=== PATIENT | female | born 1955 | race Caucasian/White ===

== ENCOUNTER 2017-12-25 11:23 | Inpatient (IN) | payer OTHER, MEDICARE ==
[~2017-12-25] VITALS: Ht 149.9 cm; Wt 46.3 kg
[~2017-12-25 11:23] MED LIST: ANASTROZOLE1 MG PO; ARICEPT10 MG PO; AUGMENTIN 875-1 EACH PO; AUGMENTIN250 MG/51 PO; BACITRACIN28.4 GM TOP; CALCIUM 600 +1 EA10 PO; CILOSTAZOL50 M1 PO; CRANBERRY FRUI425 MG PO; DEPAKOTE SPRIN125 M1 PO; DULCOLAX M400 MG/5 M PO; MACROBID100 MG PO; MIRALAX17 G1 PO; NAMENDA XR21 MG PO; NATURE'S BLEND400 IU PO; POLYTRIM O200 GTT/BO OPH; RANITIDINE15 MG/1 ML PO; [UNRECOGNIZED DRUG - OTHER] PO
--- NOTE | 2017-12-25 13:30 | ED INFLUENZA/URI COMPLAINT ---
History of Present Illness General Chief Complaint: Upper Respiratory Sx/Fever Stated Complaint: LOW GRADE FEVER, ?DEHYDRATION, COUGHING Source: old records, STAFF MEMBER Exam Limitations: clinical condition, MR Vital Signs & Intake/Output Vital Signs & Intake/Output Vital Signs Date Time Temp Pulse Resp B/P B/P Pulse O2 O2 Flow FiO2 Mean Ox Delivery Rate 12/25 1755 96.2 83 20 104/62 95 Room Air 12/25 1543 96.6 84 16 90/52 100 Room Air 12/25 1431 Room Air 12/25 1139 97.4 108 15 92 Room Air Room Air Allergies Coded Allergies: dexamethasone (From TOBRADEX) (UNKNOWN 12/25/17) tobramycin (From TOBRADEX) (UNKNOWN 12/25/17) Triage Note: PT TO ED WITH HAT FORMING MACHINE FEEDER FROM [facility] FOR INCREASED WEAKNESS AND COUGH. SEEN IN ED ON TUESDAY AND TOLD SHE HAD THE BEGINNING OF PNEUMONIA AND PUT ON AMOXICILLIN. TODAY, PT STILL HAD FEVER OF 100. AFEBRILE IN TRIAGE. FLU SWAB SENT. Triage Nurses Notes Reviewed? yes Onset: Gradual Duration: getting worse Timing: recent history Severity: severe Severity Numbers: 7 HPI: Patient is a 62-year-old female with a past medical history of Down syndrome, Alzheimer's dementia, nonverbal seizure disorder who presents to [facility] emergency room 2 days ago for concerns of aspiration pneumonia were old records indicate the patient was eating breakfast and had staff members found patient to be vomiting and was concerned of coughing where patient was evaluated at [place] emergency room in which imaging and blood work indicated that there was suspicion of aspiration pneumonia patient was safely discharged on Augmentin patient returns to emergency room was feeling worse symptoms Staff member states that patient is significantly fatigued cough still persists patient had difficult time eating and swallowing pills today no vomiting however has occurred noted 100 Fahrenheit temperature prior to arrival (Gerard Jimenez) Reconcile Medications Amoxicillin/Potassium Clav (Augmentin 875-125 Tablet) 875 MG-125 MG TABLET 1 TAB PO BID early pneumonia Amoxicillin/Potassium Clav (Augmentin 250-62.5 MG/5 Ml) 250 MG-62.5 MG/5 ML SUSP.RECON 15 ML PO BID pneumonia x 10 days Bacitracin 500 U/GM OIN 1 MARTITA TOP QPM EYES (Reported) apply to affected area(s) Calcium Carbonate (Calcium 600) 600 MG TAB 600 MG PO BID SUPPLEMENT (Reported ) CELLULOSE (Unifiber) (Unknown Strength) POWDER (Unknown Dose) PO QPM SUPPLEMENT (Reported) CHOLECALCIFEROL (VITAMIN D3) (Vitamin D3) 400 UNIT TABLET 400 IU PO BID SUPPLEMENT (Reported) Cilostazol 50 MG TABLET 1 TAB PO BID BLOOD FLOW (Reported) Cranberry (Cranberry Fruit) (Unknown Strength) CAP (Unknown Dose) PO DAILY SUPPLEMENT (Reported) Divalproex Sodium 125 MG ECC 2 CAP PO BID SEIZURES (Reported) Donepezil Hydrochloride (Aricept) 10 MG TAB 10 MG PO AT BEDTIME DEMENTIA ( Reported) Lactose-Reduced Food (Ensure Liquid) 237 ML LIQUID 1 BOT PO DAILY supplement (Reported) Magnesium Hydroxide (Dulcolax Milk Of Magnesia) (Unknown Strength) AMY ( Unknown Dose) PO DAILY GI (Reported) Memantine HCl (Namenda XR) 14 MG CAP.SPR.24 1 CAP PO DAILY MENTAL HEALTH ( Reported) MEMANTINE HCL (Namenda XR) 21 MG CER 1 CAP PO DAILY DEMENTIA/ALZHEIMERS ( Reported) Mometasone Furoate (Nasonex) 50 MCG SPRAY.PUMP 2 SPRAY NASB BID PRN nasal congestion (Reported) Mupirocin 2 % OINT...G. 1 MARTITA TOP TID PRN open wound (Reported) apply to affected area(s) Polyethylene Glycol 3350 (Miralax) 17 GRAM/DOSE POWDER 17 GM PO EOD GI ( Reported) mix with water, juice, soda, coffee or tea RANITIDINE HCL (Ranitidine HCl) 15 MG/ML SYR 15 ML PO QAM GI (Reported) (Horacio BAUER,Brayden) Past History Travel History Traveled to [place] past 21 day No Medical History Any Pertinent Medical History? see below for history Neurological: dementia, DOWN SYNDROME EENT: NONE Cardiovascular: NONE Respiratory: NONE Gastrointestinal: NONE Hepatic: NONE Renal: NONE Musculoskeletal: NONE Psychiatric: NONE Endocrine: NONE Blood Disorders: NONE Cancer(s): breast cancer PRODUCT TEST SPECIALIST/Reproductive: NONE Tetanus Vaccine: 03/17/12 Surgical History Surgical History: non-contributory, N Psychosocial History Who do you live with Paid Attentent What is your primary language Moldovan Tobacco Use: Never used Family History Hx Contributory? No (Gerard Jimenez) Review of Systems Review of Systems Constitutional: Reports: see HPI, fever. EENTM: Reports: no symptoms. Respiratory: Reports: see HPI, cough. Cardiovascular: Reports: no symptoms. GI: Reports: no symptoms. Genitourinary: Reports: no symptoms. Musculoskeletal: Reports: no symptoms. Skin: Reports: no symptoms. Neurological/Psychological: Reports: no symptoms. Hematologic/Endocrine: Reports: no symptoms. Immunologic/Allergic: Reports: no symptoms. All Other Systems: Reviewed and Negative (Gerard Jimenez) Physical Exam Physical Exam General Appearance: comfortable, lethargic Head: atraumatic Eyes: Bilateral: normal appearance. Ears, Nose, Throat: BILATERAL CERUMEN IMPACTION, DRY MUCOUS MEMBRANE Neck: normal inspection Respiratory: quiet respiration, decreased breath sounds Cardiovascular: regular rate/rhythm Gastrointestinal: normal bowel sounds, soft, non-tender Extremities: normal inspection Skin: intact, normal color Core Measures Sepsis Present: No Sepsis Focused Exam Completed? No (Gerard Jimenez) Progress Differential Diagnosis: influenza, meningitis, neutropenia, otitis, pneumonia, pharyngitis, sinusitis Plan of Care: Orders Procedure Date/time Status Nothing by Mouth 12/26 B Active SWALLOW EVALUATION 12/26 0600 Active CBC WITHOUT DIFFERENTIAL 12/26 0600 Active BASIC ELECTROLYTES PLUS BUN&CR 12/26 0600 Active Regular Diet 12/25 D Complete TRC EVALUATION (GEN) 12/25 1800 Active AEROSOL (GEN) 12/25 1800 Active STREP PNEUMO URINARY ANTIGEN 12/25 1759 Active LEGIONELLA URINARY ANTIGEN 12/25 1759 Active URINALYSIS 12/25 1759 Active LOWER RESPIRATORY CULTURE 12/25 1749 Active OXYGEN SETUP (GEN) 12/25 1748 Active Saline Lock 12/25 1748 Active Admit to inpatient 12/25 1748 Active Vital Signs 12/25 1748 Active Activity/Ambulation 12/25 1748 Active Pathway - chart 12/25 1747 Active House Staff 12/25 1747 Active Patient Data 12/25 1747 Active Code Status 12/25 1747 Active Patient Data 12/25 1736 Active LACTIC ACID 12/25 1638 Active Intake & Output 12/25 1430 Active TROPONIN LEVEL 12/25 1410 Complete EKG 12/25 1339 Active LOWER RESPIRATORY CULTURE 12/25 1338 Active BLOOD CULTURE 12/25 1338 Active LACTIC ACID 12/25 1338 Complete COMPREHENSIVE METABOLIC PANEL 12/25 1338 Complete CBC WITHOUT DIFFERENTIAL 12/25 1338 Complete RAPID VIRAL INFLUENZA A 12/25 1144 Complete VTE Mechanical Prophylaxis 12/25 UNK Active Current Medications Sig/Maia Start time Last Medication Dose Stop Time Status Admin Acetaminophen 1,000 MG Q12 PRN 12/25 1800 UNVr (Ofirmev) Ampicillin Sodium/ 1,500 MG Q6 12/25 1800 UNVr Sulbactam Sodium (Unasyn) Sodium Chloride 100 ML (Normal Saline 0.9%) Dextrose/Sodium 1,000 ML Q20H 12/25 1800 CANr Chloride 12/26 1359 (D5W-1/2 Normal Saline 1000ML) Dextrose/Sodium 1,000 ML Q20H 12/25 1800 UNVr Chloride 12/26 1359 (D5W-1/2 Normal Saline 1000ML) Ondansetron HCl 4 MG Q6P PRN 12/25 1800 UNVr (Zofran) Enoxaparin Sodium 40 MG DAILY 12/25 1744 UNVr (Lovenox) Laboratory Tests 12/25/17 1620: Anion Gap 13, Estimated GFR > 60, BUN/Creatinine Ratio 10.0, Glucose 84, Lactic Acid 1.6, Calcium 8.4, Total Bilirubin 0.6, AST 20, ALT 24, Alkaline Phosphatase 62, Troponin I < 0.01, Total Protein 5.7 L, Albumin 2.7 L, Globulin 3.0, Albumin/Globulin Ratio 0.9 L 12/25/17 1410: CBC w Diff NO MAN DIFF REQ, RBC 4.65, MCV 99.7 H, MCH 33.2 H, MCHC 33.3, RDW 14.1, MPV 8.5, Gran % 66.6, Lymphocytes % 22.8, Monocytes % 9.5 H, Eosinophils % 0.4, Basophils % 0.7, Absolute Granulocytes 4.0, Absolute Lymphocytes 1.4, Absolute Monocytes 0.6, Absolute Eosinophils 0, Absolute Basophils 0 12/25/17 1339: Troponin I Cancelled Microbiology 12/25 175 URINE ROUT: Legionella Antigen - ORD 12/25 175 URINE ROUT: Streptococcus pneumoniae Antigen (M - ORD 12/25 1749 LOWER RESP: Respiratory Culture - ORD 12/25 174 LOWER RESP: Gram Stain - ORD 12/25 1510 BLOOD: Blood Culture - RECD 12/25 1410 BLOOD: Blood Culture - CAN Cancelled: Quantity not sufficient for both blood culture bottles. 12/25 1338 LOWER RESP: Respiratory Culture - ORD 12/25 1338 LOWER RESP: Gram Stain - ORD 12/25 1145 NASOPHARYN: Influenza Virus A & B Rapid Smear - COMP PER HAT FORMING MACHINE FEEDER PT HAS NOT IMPROVED WITH ABX AND FLUIDS AT HOME PT IS LETHARGIC ON ARRIVAL, BRONCHIAL INFLAMMATION CONCERNS ON CXR Discussed admission with Dr. Peterson who is covering for Dr. Nicholas and which [facility] is appropriate Diagnostic Imaging: Viewed by Me: Radiology Read. Radiology Impression: SEE COMMENTS Initial ED EKG: normal p-waves, normal QRS complex, 83 BPM,NSR Prior EKG: unchanged Comments: PATIENT: BEHZAD ESPINOZA PRESENT AGE: 62 PATIENT ACCOUNT NO: [id number] : 54 LOCATION: [facility] ORDERING PHYSICIAN: Gerard BENAVIDES SERVICE DATE: 12/25/17 EXAM TYPE: RAD - XRY-CHEST XRAY, TWO VIEWS EXAMINATION: XR CHEST CLINICAL INFORMATION: Aspiration pneumonia COMPARISON: CXR from 12/23/2017 TECHNIQUE: 2 views of the chest were obtained. FINDINGS: Bronchial friedman appear thickened, bilaterally, suggestive of airway inflammation. No consolidation is identified. There appears to be a linear opacity of atelectasis in the retrocardiac region of left lower lobe. No pleural effusion. Cardiomediastinal silhouette has normal size and contour. There are surgical clips of the right axilla. No acute osseous findings compared to 12/23/2017. The degenerated thoracic spine is hyperkyphotic. IMPRESSION: Bronchial friedman appear mildly thickened, suggestive of airway inflammation. However, there is no convincing pneumonia. DICTATED BY: Foreign Raymond MD DATE/TIME DICTATED:12/25/171500 CORPORATE CONTROLLER:TOMAS DATE/TIME TRANSCRIBED:12/25/171500 (Gerard Jimenez) Departure Departure Disposition: STILL A PATIENT Condition: Stable Clinical Impression Primary Impression: Bronchitis Secondary Impressions: Lethargy Referrals: Vinicio Nicholas MD (PCP/Family) Departure Forms: Customer Survey General Discharge Information Admission Note Spoke With: Jose Peterson MD Documentation of Exam: Documentation of any treatments & extenuating circumstances including Concerns Regarding Discharge (functional status, medication knowledge or non-compliance, living conditions, etc.) that warrant an admission rather than observation: [ Patient requires IV fluids, dietary consultation, antibiotics, case management consultation, repeat labs, antitussive medication] (Gerard Jimenez) PA/WHOLESALE LOAN PROCESSOR Co-Sign Statement Statement: ED Attending supervision documentation- x I saw and evaluated the patient. I have also reviewed all the pertinent lab results and diagnostic results. I agree with the findings and the plan of care as documented in the PA's/WHOLESALE LOAN PROCESSOR's documentation. Down's syndrome from [facility] continues with cough, nausea, anorexia on Augmentin for presurmed aspiration. [] I have reviewed the ED Record and agree with the PA's/WHOLESALE LOAN PROCESSOR's documentation. [] Additions or exceptions (if any) to the PAs/WHOLESALE LOAN PROCESSOR's note and plan are summarized below: [] (Horacio BAUER,Brayden)
[2017-12-25 14:22] LABS: ABSOLUTE BASOPHIL COUNT 0 /CUMM (0.0-0.2); ABSOLUTE EOSINOPHIL COUNT 0 /CUMM (0.0-0.7); ABSOLUTE LYMPH COUNT 1.4 /CUMM (1.2-3.4); ABSOLUTE MONOCYTE COUNT 0.6 /CUMM (0.10-0.60); BASOPHIL % 0.7 % (0.0-2.0); EOSINOPHIL % 0.4 % (0-5); GRANULOCYTE % 66.6 % (42.2-75.2); HEMATOCRIT 46.3 % (37-47); MEAN CORPUSCULAR HGB 33.2 PG (27.0-31.0); MEAN CORPUSCULAR HGB CONC 33.3 G/DL (33.0-37.0); MEAN CORPUSCULAR VOLUME 99.7 FL (81.0-99.0); MEAN PLATELET VOLUME 8.5 FL (7.4-10.4); PLATELET COUNT 204 /CUMM (130-400); RBC DISTRIBUTION WIDTH 14.1 % (11.5-14.5); RED BLOOD CELL CT 4.65 /CUMM (4.20-5.40)
--- NOTE | 2017-12-25 15:11 | RADIOLOGY REPORT ---
EXAMINATION: XR CHEST CLINICAL INFORMATION: Aspiration pneumonia COMPARISON: CXR from 12/23/2017 TECHNIQUE: 2 views of the chest were obtained. FINDINGS: Bronchial friedman appear thickened, bilaterally, suggestive of airway inflammation. No consolidation is identified. There appears to be a linear opacity of atelectasis in the retrocardiac region of left lower lobe. No pleural effusion. Cardiomediastinal silhouette has normal size and contour. There are surgical clips of the right axilla. No acute osseous findings compared to 12/23/2017. The degenerated thoracic spine is hyperkyphotic. IMPRESSION: Bronchial friedman appear mildly thickened, suggestive of airway inflammation. However, there is no convincing pneumonia.
--- NOTE | 2017-12-25 17:42 | History & Physical ---
General Information and HPI MD Statement: I have seen and personally examined BEHZAD ESPINOZA and documented this H&P. The patient is a 62 year old F who presented with a patient stated chief complaint of worsening cough and fever []. Source of Information: old records Exam Limitations: unable to give history History of Present Illness: Patient is 62-year-old female from residential with past medical history significant for Down syndrome, seizure, right breast carcinoma status post mastectomy recent ER visit at [facility] on December 23 FOR suspicion of aspiration pneumonia came back to [facility] ER with chief complaint of worsening cough, weakness and fever. Patient is unable to give any history and according to caregiver she was brought in in the ER on when she started coughing and vomited while she was eating and from ER she was sent back to half-way on Augmentin. In these Tuesdays she continues to spike fever with MAXIMUM TEMPERATURE of 100.1 at facility and also she had worsening cough which was concerning and was brought in. Her vital signs on admission were blood pressure 90/52, temperature 96.6, pulse 84, respiratory rate 16, and she was saturating 92% on room air. Labs were significant for WBC count 6.0, hemoglobin 15.4, hematocrit 46.3, platelet count 204, sodium 147, potassium 4.2, urine 7, creatinine 0.7. Lactic acid 1.6 normal LFTs Chest x-ray showed Bronchial friedman appear mildly thickened, suggestive of airway inflammation. However, there is no convincing pneumonia. Allergies/Medications Allergies: Coded Allergies: dexamethasone (From TOBRADEX) (UNKNOWN 12/25/17) tobramycin (From TOBRADEX) (UNKNOWN 12/25/17) Home Med list Amoxicillin/Potassium Clav (Augmentin 875-125 Tablet) 875 MG-125 MG TABLET 1 TAB PO BID early pneumonia Amoxicillin/Potassium Clav (Augmentin 250-62.5 MG/5 Ml) 250 MG-62.5 MG/5 ML SUSP.RECON 15 ML PO BID pneumonia x 10 days Bacitracin 500 U/GM OIN 1 MARTITA TOP QPM EYES (Reported) apply to affected area(s) Calcium Carbonate (Calcium 600) 600 MG TAB 600 MG PO BID SUPPLEMENT (Reported ) CELLULOSE (Unifiber) (Unknown Strength) POWDER (Unknown Dose) PO QPM SUPPLEMENT (Reported) CHOLECALCIFEROL (VITAMIN D3) (Vitamin D3) 400 UNIT TABLET 400 IU PO BID SUPPLEMENT (Reported) Cilostazol 50 MG TABLET 1 TAB PO BID BLOOD FLOW (Reported) Cranberry (Cranberry Fruit) (Unknown Strength) CAP (Unknown Dose) PO DAILY SUPPLEMENT (Reported) Divalproex Sodium 125 MG ECC 2 CAP PO BID SEIZURES (Reported) Lactose-Reduced Food (Ensure Liquid) 237 ML LIQUID 1 BOT PO DAILY supplement (Reported) Magnesium Hydroxide (Dulcolax Milk Of Magnesia) (Unknown Strength) AMY ( Unknown Dose) PO DAILY GI (Reported) Memantine HCl (Namenda XR) 14 MG CAP.SPR.24 1 CAP PO DAILY MENTAL HEALTH ( Reported) Mometasone Furoate (Nasonex) 50 MCG SPRAY.PUMP 2 SPRAY NASB BID PRN nasal congestion (Reported) Mupirocin 2 % OINT...G. 1 MARTITA TOP TID PRN open wound (Reported) apply to affected area(s) Polyethylene Glycol 3350 (Miralax) 17 GRAM/DOSE POWDER 17 GM PO EOD GI ( Reported) mix with water, juice, soda, coffee or tea RANITIDINE HCL (Ranitidine HCl) 15 MG/ML SYR 15 ML PO QAM GI (Reported) Compliance With Home Meds: FAIR Past History Travel History Traveled to [place] past 21 day No Medical History Neurological: dementia, DOWN SYNDROME EENT: NONE Cardiovascular: NONE Respiratory: NONE Gastrointestinal: NONE Hepatic: NONE Renal: NONE Musculoskeletal: NONE Psychiatric: NONE Endocrine: NONE Blood Disorders: NONE Cancer(s): breast cancer EXECUTIVE OFFICER SPECIAL WARFARE TEAM/Reproductive: NONE Tetanus Vaccine: 03/17/12 Surgical History Surgical History: non-contributory, N Review of Systems Review of Systems Constitutional: Reports: fever, malaise, weakness. Denies: chills, diaphoresis. Respiratory: Reports: cough, sputum production. Denies: stridor, wheezing. GI: Denies: constipation, diarrhea. Genitourinary: Denies: dysuria, frequency, hematuria. Musculoskeletal: Denies: gout, joint pain. Skin: Denies: dryness. Exam & Diagnostic Data Last 24 Hrs of Vital Signs/I&O Vital Signs Date Time Temp Pulse Resp B/P B/P Pulse O2 O2 Flow FiO2 Mean Ox Delivery Rate 12/25 1755 96.2 83 20 104/62 95 Room Air 12/25 1543 96.6 84 16 90/52 100 Room Air 12/25 1431 Room Air 12/25 1139 97.4 108 15 92 Room Air Room Air Intake & Output 12/25 1600 12/25 0800 12/25 0000 Intake Total 1000 Output Total Balance 1000 Intake, IV 1000 Physical Exam General Appearance Alert, Oriented X3, Cooperative, No Acute Distress Cardiovascular Regular Rate, Normal S1, Normal S2, No Murmurs Lungs Normal Air Movement Abdomen Soft, No Tenderness, No Hepatospenomegaly Extremities No Cyanosis, No Edema Last 24 Hrs of Labs/Amos: Laboratory Tests 12/25/17 1620: Anion Gap 13, Estimated GFR > 60, BUN/Creatinine Ratio 10.0, Glucose 84, Lactic Acid 1.6, Calcium 8.4, Total Bilirubin 0.6, AST 20, ALT 24, Alkaline Phosphatase 62, Troponin I < 0.01, Total Protein 5.7 L, Albumin 2.7 L, Globulin 3.0, Albumin/Globulin Ratio 0.9 L 12/25/17 1410: CBC w Diff NO MAN DIFF REQ, RBC 4.65, MCV 99.7 H, MCH 33.2 H, MCHC 33.3, RDW 14.1, MPV 8.5, Gran % 66.6, Lymphocytes % 22.8, Monocytes % 9.5 H, Eosinophils % 0.4, Basophils % 0.7, Absolute Granulocytes 4.0, Absolute Lymphocytes 1.4, Absolute Monocytes 0.6, Absolute Eosinophils 0, Absolute Basophils 0 12/25/17 1339: Troponin I Cancelled Microbiology 12/25 1758 URINE ROUT: Legionella Antigen - ORD 12/25 175 URINE ROUT: Streptococcus pneumoniae Antigen (M - ORD 12/25 1749 LOWER RESP: Respiratory Culture - ORD 12/25 1749 LOWER RESP: Gram Stain - ORD 12/25 1510 BLOOD: Blood Culture - RECD 12/25 1410 BLOOD: Blood Culture - CAN Cancelled: Quantity not sufficient for both blood culture bottles. 12/25 1338 LOWER RESP: Respiratory Culture - ORD 12/25 1338 LOWER RESP: Gram Stain - ORD 12/25 1145 NASOPHARYN: Influenza Virus A & B Rapid Smear - COMP Assessment/Plan Assessment: Patient is 62-year-old female from residential with past medical history significant for Down syndrome, seizure, right breast carcinoma status post mastectomy recent ER visit at [facility] on December 23 FOR suspicion of aspiration pneumonia came back to [facility] ER with chief complaint of worsening cough, weakness and fever concerning of aspiration pneumonia. We will admit her on general medical floor and will address following problems Problem #1 worsening cough, weakness and fever most likely due to aspiration pneumonia * We will keep her nothing by mouth except will give her medications crushed with applesauce * Swallow evaluation in a.m. * Aspiration precautions * TRC and nebulization * Start her on Unasyn for now and will send lower respiratory culture * While she is nothing by mouth we will start her on D5 half-normal saline * We will keep her oxygen saturation more than 90% and will give supplemental oxygen if needed Problem #2 history of seizures * We'll continue her home dose of Depakote Problem #3 Down syndrome/wheelchair-bound * All supportive care and [address] Sawant's catheter if needed Pharmacological DVT prophylaxis Patient is full code As Ranked By This Provider Problem List: 1. Aspiration pneumonia Core Measures/Misc (08/14) Acute Coronary Syndrome ACS Diagnosis: No Congestive Heart Failure Congestive Heart Failure Diagnosis No Cerebrovascular Accident CVA/TIA Diagnosis: No VTE (View Protocol) VTE Risk Factors Age>40 No Mechanical VTE Prophylaxis d/t N/A MechProphylax Ordered No VTE Pharm Prophylaxis d/t NA PharmProphylax ordered Sepsis (View protocol) Sepsis Present: No Resident Review Statement Resident Statement: examined this patient
[2017-12-25] MEDS ORDERED: NASONEX17 GM NASB (18:43)
[2017-12-25] MEDS ORDERED: MUPIROCIN22 GM TOP (18:44)
[2017-12-25] MEDS ORDERED: ENSURE LIQUID237 ML PO (18:46)
[2017-12-25] MEDS ORDERED: NAMENDA XR14 M1 PO (18:47)
[2017-12-25 20:16] VITALS: BP 104/60
[2017-12-26 06:34] VITALS: BP 127/60
--- NOTE | 2017-12-26 08:14 | PN- Housestaff ---
Subjective Follow-up For: Worsening cough/aspiration pneumonia Seizure disorder Down syndrome Subjective: Patient was seen and examined this morning. She is nonverbal at baseline. But no overnight event were noted. Swallow evaluation was done this morning and still she is not safe to start on oral diet. We kept her on IV fluids. Around 4:30 this afternoon rapid response was called after witnessed seizure episode. Neurology was consulted and her Depakote dose from 250 twice a day was increased to the times a day and also was changed to IV formulation. Depakote levels were also add on on morning labs. Attending was informed. Review of Systems Constitutional: Denies: chills, diaphoresis. Cardiovascular: Denies: chest pain, edema. Respiratory: Reports: cough. Denies: short of breath. Gastrointestinal: Denies: bloating, diarrhea. Genitourinary: Denies: dysuria, frequency. Objective Last 24 Hrs of Vital Signs/I&O Vital Signs Date Time Temp Pulse Resp B/P B/P Pulse O2 O2 Flow FiO2 Mean Ox Delivery Rate 12/26 1437 97.9 65 19 118/70 92 Room Air 12/26 1324 Room Air Room Air 12/26 0800 Room Air 12/26 0634 97.3 71 20 127/60 96 12/25 2016 98.4 80 19 104/60 100 Room Air 12/25 1928 97.6 86 18 124/69 98 Room Air 12/25 1755 96.2 83 20 104/62 95 Room Air Intake & Output 12/26 1600 12/26 0800 12/26 0000 Intake Total 400 570 100 Output Total Balance 400 570 100 Intake, IV 400 570 100 Intake, Oral 0 Number 1 0 Bowel Movements Output, Urine Patient 101 lb Weight Weight Bed scale Measurement Method Physical Exam General Appearance: Alert, Cooperative, No Acute Distress Cardiovascular: Normal S1, Normal S2 Lungs: Normal Air Movement Abdomen: Soft, No Tenderness Current Medications: Current Medications Sig/Maia Start time Last Medication Dose Route Stop Time Status Admin Acetaminophen 650 MG Q12 PRN 12/25 1800 AC IV Ampicillin Sodium/ 1,500 MG Q6 12/25 1800 AC 12/26 Sulbactam Sodium IV 1145 Sodium Chloride 100 ML Dextrose/Sodium 1,000 ML Q20H 12/26 1615 AC 12/26 Chloride IV 12/27 1214 1746 Dextrose/Sodium 1,000 ML Q20H 12/25 1800 DC 12/25 Chloride IV 12/26 1359 1955 Divalproex Sodium 250 MG BID 12/25 2200 DC 12/26 PO 0919 Enoxaparin Sodium 40 MG DAILY 12/25 1744 AC 12/26 SC 0919 Lorazepam 1 MG ONCE ONE 12/26 1700 DC 12/26 IV 12/26 1701 1655 Memantine 5 MG BID 12/26 1000 AC 12/26 PO 0919 Ondansetron HCl 4 MG Q6P PRN 12/25 1800 AC IV Pantoprazole Sodium 20 MG DAILY 12/26 1000 AC 12/26 IV 0919 Valproate Sodium 500 MG Q8 12/26 1721 UNir Sodium Chloride 50 ML IV Valproate Sodium 250 MG TID 12/26 1717 CANr IV Last 24 Hrs of Lab/Amos Results Last 24 Hrs of Labs/Mics: Laboratory Tests 12/26/17 171: Sodium Pending, Potassium Pending, Chloride Pending, Carbon Dioxide Pending, Anion Gap Pending, BUN Pending, Creatinine Pending, BUN/Creatinine Ratio Pending , Phosphorus Pending, Magnesium Pending 12/26/17 0941: CBC w Diff NO MAN DIFF REQ, RBC 4.15 L, MCV 98.5, MCH 33.3 H, MCHC 33.8, RDW 13.3, MPV 8.6, Gran % 61.7, Lymphocytes % 25.4, Monocytes % 10.3 H, Eosinophils % 1.0, Basophils % 1.6, Absolute Granulocytes 1.6, Absolute Lymphocytes 0.7 L, Absolute Monocytes 0.3, Absolute Eosinophils 0, Absolute Basophils 0 12/26/17 0930: Anion Gap 10, Estimated GFR > 60, BUN/Creatinine Ratio 5.7 L, Valproic Acid Pending 12/25/17 175: Urine Color Cancelled, Urine Clarity Cancelled, Urine pH Cancelled, Ur Specific [place] Cancelled, Urine Protein Cancelled, Urine Ketones Cancelled, Urine Nitrite Cancelled, Urine Bilirubin Cancelled, Urine Urobilinogen Cancelled, Ur Leukocyte Esterase Cancelled, Ur Microscopic Cancelled, Urine Hemoglobin Cancelled, Urine Glucose Cancelled Microbiology 12/25 1758 URINE ROUT: Legionella Antigen - CAN Cancelled: SPECIMEN NOT RECEIVED IN LABORATORY 12/25 1758 URINE ROUT: Streptococcus pneumoniae Antigen (M - CAN Cancelled: SPECIMEN NOT RECEIVED IN LABORATORY Assessment/Plan Assessment: Patient is 62-year-old female from assisted with past medical history significant for Down syndrome, seizure, right breast carcinoma status post mastectomy recent ER visit at [facility] on December 23 FOR suspicion of aspiration pneumonia came back to [facility] ER with chief complaint of worsening cough, weakness and fever concerning of aspiration pneumonia. We will admit her on general medical floor and will address following problems Problem #1 worsening cough, weakness and fever most likely due to aspiration pneumonia * We will keep her nothing by mouth except will give her medications crushed with applesauce * Swallow evaluation was done this morning and she still feels bedside swallow and we will reevaluate her tomorrow morning.. * Aspiration precautions * TRC and nebulization * Start her on Unasyn for now and will send lower respiratory culture * While she is nothing by mouth we will continue her on D5 half-normal saline * We will keep her oxygen saturation more than 90% and will give supplemental oxygen if needed Problem #2 history of seizures * She was continued on her home dose of Depakote. Around 4:30 PM she had an episode of witnessed seizure. Neurology was consulted on phone and recommendations are to increase Depakote to 250 mg 3 times a day. We will follow formal neurology evaluation and recommendations. Depakote levels were add-on on the morning labs. Problem #3 Down syndrome/wheelchair-bound * All supportive care and [address] Sawant's catheter if needed Problem List: 1. Aspiration pneumonia Pain Ratin Pain Location: na Pain Goal: Remain pain free Pain Plan: Tylenol Tomorrow's Labs & Rationales: cbc and bep
[2017-12-26 10:07] LABS: ABSOLUTE BASOPHIL COUNT 0 /CUMM (0.0-0.2); ABSOLUTE EOSINOPHIL COUNT 0 /CUMM (0.0-0.7); ABSOLUTE GRANULOCYTE CT 1.6 /CUMM (1.4-6.5); ABSOLUTE LYMPH COUNT 0.7 /CUMM (1.2-3.4); ABSOLUTE MONOCYTE COUNT 0.3 /CUMM (0.10-0.60); BASOPHIL % 1.6 % (0.0-2.0); GRANULOCYTE % 61.7 % (42.2-75.2); MEAN CORPUSCULAR HGB 33.3 PG (27.0-31.0); MEAN CORPUSCULAR HGB CONC 33.8 G/DL (33.0-37.0); MEAN CORPUSCULAR VOLUME 98.5 FL (81.0-99.0); MEAN PLATELET VOLUME 8.6 FL (7.4-10.4); PLATELET COUNT 175 /CUMM (130-400); RBC DISTRIBUTION WIDTH 13.3 % (11.5-14.5); RED BLOOD CELL CT 4.15 /CUMM (4.20-5.40)
[2017-12-26 10:09] LABS: HEMATOCRIT 40.9 % (37-47); WHITE BLOOD CELL COUNT 2.6 /CUMM (4.8-10.8)
--- NOTE | 2017-12-26 10:51 | Admission Certification ---
Admission Certification Certification Statement - As attending physician, I certify that at the time of - admission, based on clinical presentation, severity of - symptoms, need for further diagnostic testing and - therapeutic interventions, and risk of adverse outcomes - without in-hospital treatment, in my clinical assessment, - this patient requires an acute hospital stay for a minimum - of two nights or longer. I have also considered psychsocial - factors such as support system, advanced age, financial - issues, cognitive issues, and failed out-patient treatments, - past re-admission history, safety of patient, and lack of - compliance as applicable. Specific rationale supporting this admission is: Aspirating food a low-grade fever or possible aspiration
--- NOTE | 2017-12-26 10:53 | PN- Att Addend ---
Attending Addendum Attending Brief Note 62-year-old white female with Down syndrome and [facility] food intake possibly aspirating, had one ER visit have returned still having the same problems having low[facility] at the [facility]. Will admit evaluate for aspiration with a swallowing eval maybe modified barium swallow if needed. And will get antibiotic therapy. 24 TOTALS 12/26 0000 12/25 0000 Intake Total 1100 Output Total Balance 1100 Intake, IV 1100 Patient 101 lb Weight Weight Bed scale Measurement Method Current Medications Sig/Maia Start time Last Medication Dose Route Stop Time Status Admin Acetaminophen 650 MG Q12 PRN 12/25 1800 AC IV Albuterol Sulfate 3 ML ONCE ONE 12/25 1530 DC 12/25 INH 12/25 1531 1710 Ampicillin Sodium/ 1,500 MG Q6 12/25 1800 AC 12/26 Sulbactam Sodium IV 0537 Sodium Chloride 100 ML Ampicillin Sodium/ 0 .STK-MED ONE 12/25 1446 DC Sulbactam Sodium .ROUTE Ampicillin Sodium/ 1,500 MG ONCE ONE 12/25 1345 DC 12/25 Sulbactam Sodium IV 12/25 1414 1717 Sodium Chloride 100 ML Dextrose/Sodium 1,000 ML Q20H 12/25 1800 CAN Chloride IV 12/26 1359 Dextrose/Sodium 1,000 ML Q20H 12/25 1800 AC 12/25 Chloride IV 12/26 1359 1955 Divalproex Sodium 250 MG BID 12/25 2200 AC 12/26 PO 0919 Enoxaparin Sodium 40 MG DAILY 12/25 1744 AC 12/26 SC 0919 Guaifenesin 0 .STK-MED ONE 12/25 1637 DC PO Guaifenesin 10 ML ONCE ONE 12/25 1530 DC PO 12/25 1531 Guaifenesin 10 ML ONCE ONE 12/25 1345 DC 12/25 PO 12/25 1346 1648 Memantine 5 MG BID 12/26 1000 AC 12/26 PO 0919 Ondansetron HCl 4 MG Q6P PRN 12/25 1800 AC IV Pantoprazole Sodium 20 MG DAILY 12/26 1000 AC 12/26 IV 0919 Sodium Chloride 1,000 ML BOLUS ONE 12/25 1345 DC 12/25 IV 12/25 1444 1428 Laboratory Tests 12/26/17 0941: CBC w Diff NO MAN DIFF REQ, RBC 4.15 L, MCV 98.5, MCH 33.3 H, MCHC 33.8, RDW 13.3, MPV 8.6, Gran % 61.7, Lymphocytes % 25.4, Monocytes % 10.3 H, Eosinophils % 1.0, Basophils % 1.6, Absolute Granulocytes 1.6, Absolute Lymphocytes 0.7 L, Absolute Monocytes 0.3, Absolute Eosinophils 0, Absolute Basophils 0 12/26/17 0930: Sodium Pending, Potassium Pending, Chloride Pending, Carbon Dioxide Pending, Anion Gap Pending, BUN Pending, Creatinine Pending, BUN/Creatinine Ratio Pending 12/25/17 1638: Lactic Acid Cancelled 12/25/17 1620: Anion Gap 13, Estimated GFR > 60, BUN/Creatinine Ratio 10.0, Glucose 84, Lactic Acid 1.6, Calcium 8.4, Total Bilirubin 0.6, AST 20, ALT 24, Alkaline Phosphatase 62, Troponin I < 0.01, Total Protein 5.7 L, Albumin 2.7 L, Globulin 3.0, Albumin/Globulin Ratio 0.9 L 12/25/17 1410: CBC w Diff NO MAN DIFF REQ, RBC 4.65, MCV 99.7 H, MCH 33.2 H, MCHC 33.3, RDW 14.1, MPV 8.5, Gran % 66.6, Lymphocytes % 22.8, Monocytes % 9.5 H, Eosinophils % 0.4, Basophils % 0.7, Absolute Granulocytes 4.0, Absolute Lymphocytes 1.4, Absolute Monocytes 0.6, Absolute Eosinophils 0, Absolute Basophils 0 12/25/17 1339: Troponin I Cancelled Microbiology 12/25 1145 NASOPHARYN: Influenza Virus A & B Rapid Smear - COMP Vital Signs Date Time Temp Pulse Resp B/P B/P Pulse O2 O2 Flow FiO2 Mean Ox Delivery Rate 12/26 0800 Room Air 12/26 0634 97.3 71 20 127/60 96 12/25 2015 98.4 80 19 104/60 100 Room Air 12/25 1928 97.6 86 18 124/69 98 Room Air 12/25 1755 96.2 83 20 104/62 95 Room Air 12/25 1543 96.6 84 16 90/52 100 Room Air 12/25 1431 Room Air 12/25 1139 97.4 108 15 92 Room Air Room Air
[2017-12-26 14:37] VITALS: BP 118/70
--- NOTE | 2017-12-26 18:21 | Discharge Summary ---
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 We will admit her on general medical floor and will address following problems Problem #1 worsening cough, weakness and fever most likely due to aspiration pneumonia * Patient was started on Unasyn. She was kept nothing by mouth and multiple swallow evaluations were done which she did not pass initially. We started her on D5 half-normal saline but due to elevated sodium we change fluids from D5 half-normal saline to D5 at rate 50. She was kept on aspiration precautions Problem #2 history of seizures * Patient was kept on her home dose of Depakote 250 twice a day which was converted to IV. She had an episode of twitching on December 26. Rapid response was called due to resumption of seizure and her Depakote was increased. Neurology consultation was placed. Depakote level came back therapeutic and her medication was changed back to her normal dose. Problem #3 Down syndrome/wheelchair-bound * All supportive care was provided. Pharmacological DVT prophylaxis Patient is full code Allergies: Coded Allergies: dexamethasone (From TOBRADEX) (UNKNOWN 12/25/17) tobramycin (From TOBRADEX) (UNKNOWN 12/25/17) Significant Procedures: SERVICE DATE: 12/25/17-1336 EXAM TYPE: RAD - XRY-CHEST XRAY, TWO VIEWS EXAMINATION: XR CHEST CLINICAL INFORMATION: Aspiration pneumonia COMPARISON: CXR from 12/23/2017 TECHNIQUE: 2 views of the chest were obtained. FINDINGS: Bronchial friedman appear thickened, bilaterally, suggestive of airway inflammation. No consolidation is identified. There appears to be a linear opacity of atelectasis in the retrocardiac region of left lower lobe. No pleural effusion. Cardiomediastinal silhouette has normal size and contour. There are surgical clips of the right axilla. No acute osseous findings compared to 12/23/2017. The degenerated thoracic spine is hyperkyphotic. IMPRESSION: Bronchial friedman appear mildly thickened, suggestive of airway inflammation. However, there is no convincing pneumonia. Disposition Summary Disposition Principal Diagnosis: Aspiration pneumonia Additional Diagnosis: Seizure disorder Discharge Disposition: SNF Discharge Instructions General Discharge Information Code Status: Full Code
[2017-12-26 23:06] VITALS: BP 141/105
[2017-12-27 07:19] VITALS: BP 121/68
--- NOTE | 2017-12-27 07:56 | PN- Housestaff ---
Subjective Follow-up For: Aspiration pneumonia Seizure disorder Subjective: Patient was seen and examined this morning. She was lying comfortably on bed. She is nonverbal at baseline. She still nothing by mouth not past swallow well currently on D5 half-normal saline. She was seen by Dr. Lakhani from neurology and recommendations are to keep her on same dose of Depakote as she was on previously at 250 twice a day. Once she would be more alert and able to swallow we will change medications to oral. Review of Systems Constitutional: Denies: diaphoresis, fever. Cardiovascular: Reports: see HPI. Respiratory: Reports: see HPI. Gastrointestinal: Reports: see HPI. Genitourinary: Reports: see HPI. Musculoskeletal: Reports: see HPI. Objective Last 24 Hrs of Vital Signs/I&O Vital Signs Date Time Temp Pulse Resp B/P B/P Pulse O2 O2 Flow FiO2 Mean Ox Delivery Rate 12/27 1409 98.3 97 20 122/80 92 12/27 0719 97.4 64 16 121/68 99 Room Air 12/27 0000 Room Air 12/26 2306 98.1 80 18 141/105 95 Room Air Intake & Output 12/27 1600 12/27 0800 12/27 0000 Intake Total 400 560 Output Total Balance 400 560 Intake, IV 400 560 Intake, Oral 0 0 Number 1 0 Bowel Movements Physical Exam General Appearance: No Acute Distress Cardiovascular: Normal S1, Normal S2, No Murmurs Lungs: Normal Air Movement Abdomen: Soft, No Tenderness Current Medications: Current Medications Sig/Maia Start time Last Medication Dose Route Stop Time Status Admin Acetaminophen 650 MG Q12 PRN 12/25 1800 AC IV Ampicillin Sodium/ 1,500 MG Q6H 12/26 1915 AC 12/27 Sulbactam Sodium IV 0623 Sodium Chloride 50 ML Ampicillin Sodium/ 1,500 MG Q6 12/25 1800 DC 12/26 Sulbactam Sodium IV 1145 Sodium Chloride 100 ML Dextrose/Sodium 1,000 ML Q20H 12/26 1615 DC 12/26 Chloride IV 12/27 1214 1746 Dextrose/Water 1,000 ML ONCE ONE 12/27 1530 UNir IV 12/28 1129 Divalproex Sodium 250 MG BID 12/25 2200 DC 12/26 PO 0919 Enoxaparin Sodium 40 MG DAILY 12/25 1744 AC 12/27 SC 0856 Lorazepam 1 MG ONCE ONE 12/26 1700 DC 12/26 IV 12/26 1701 1655 Memantine 5 MG BID 12/26 1000 AC 12/26 PO 0919 Ondansetron HCl 4 MG Q6P PRN 12/25 1800 AC IV Pantoprazole Sodium 20 MG DAILY 12/26 1000 AC 12/27 IV 0856 Valproate Sodium 250 MG BID 12/27 2200 CAN IV Valproate Sodium 250 MG BID 12/27 2200 AC Sodium Chloride 50 ML IV Valproate Sodium 500 MG Q8H 12/26 2000 DC 12/27 Sodium Chloride 50 ML IV 0420 Valproate Sodium 500 MG Q8 12/26 1721 DC Sodium Chloride 50 ML IV Valproate Sodium 250 MG TID 12/26 1717 CAN IV Last 24 Hrs of Lab/Amos Results Last 24 Hrs of Labs/Mics: Laboratory Tests 12/26/171716: Anion Gap 11, Estimated GFR > 60, BUN/Creatinine Ratio 6.7 L, Phosphorus 3.3, Magnesium 2.1 Assessment/Plan Assessment: Patient is 62[facility] with past medical history significant for Down syndrome, seizure, right breast carcinoma status post mastectomy recent ER visit at [facility] on December 23 FOR suspicion of aspiration pneumonia came back to [facility] ER with chief complaint of worsening cough, weakness and fever concerning of aspiration pneumonia. We will admit her on general medical floor and will address following problems Problem #1 worsening cough, weakness and fever most likely due to aspiration pneumonia * We will keep her nothing by mouth except will give her medications crushed with applesauce * Swallow evaluation cannot be done today because she was very lethargic and sleepy did not participate a swallow evaluation and we will reevaluate her tomorrow * Aspiration precautions * TRC and nebulization * Start her on Unasyn for now and will send lower respiratory culture * While she is nothing by mouth we will continue her on D5 half-normal saline * We will keep her oxygen saturation more than 90% and will give supplemental oxygen if needed Problem #2 history of seizures * She was continued on her home dose of Depakote. Neurology consultation was placed and appreciated. According to the recommendations we will maintain her on home dose of Depakote. Her Depakote levels are within therapeutic range. Problem #3 Down syndrome/wheelchair-bound * All supportive care and [address] Sawant's catheter if needed Problem List: 1. Aspiration pneumonia Pain Ratin Pain Location: NA Pain Goal: Remain pain free Pain Plan: TYLENOL Tomorrow's Labs & Rationales: CBC AND BNEP
--- NOTE | 2017-12-27 10:06 | PN- Att Addend ---
Attending Addendum Attending Brief Note Patient in bed comfortable. Yesterday a rapid response was called questioning a seizure but asking the staff at the care home when she has this abnormal movements at times. A neurology consult will be requested anyways to see if any medication adjustment is needed. Otherwise needs to reevaluate the swallowing , continue to treat as an aspiration pneumonia Intake & Output 12/27 1600 12/27 0400 12/26 1600 12/26 0400 12/25 1600 12/25 0400 Intake Total 400 560 147 313 0733 Output Total Balance 400 560 364 222 6645 Intake, IV 400 560 175 988 9575 Intake, Oral 0 0 0 Number 0 1 Bowel Movements Output, Urine Patient 101 lb Weight Weight Bed scale Measurement Method Current Medications Sig/Maia Start time Last Medication Dose Route Stop Time Status Admin Acetaminophen 650 MG Q12 PRN 12/25 1800 AC IV Ampicillin Sodium/ 1,500 MG Q6H 12/26 1915 AC 12/27 Sulbactam Sodium IV 0623 Sodium Chloride 50 ML Ampicillin Sodium/ 1,500 MG Q6 12/25 1800 DC 12/26 Sulbactam Sodium IV 1145 Sodium Chloride 100 ML Dextrose/Sodium 1,000 ML Q20H 12/26 1615 AC 12/26 Chloride IV 12/27 1214 1746 Dextrose/Sodium 1,000 ML Q20H 12/25 1800 DC 12/25 Chloride IV 12/26 1359 1955 Divalproex Sodium 250 MG BID 12/25 2200 DC 12/26 PO 0919 Enoxaparin Sodium 40 MG DAILY 12/25 1744 AC 12/27 SC 0856 Lorazepam 1 MG ONCE ONE 12/26 1700 DC 12/26 IV 12/26 1701 1655 Memantine 5 MG BID 12/26 1000 AC 12/26 PO 0919 Ondansetron HCl 4 MG Q6P PRN 12/25 1800 AC IV Pantoprazole Sodium 20 MG DAILY 12/26 1000 AC 12/27 IV 0856 Valproate Sodium 500 MG Q8H 12/26 2000 AC 12/27 Sodium Chloride 50 ML IV 0420 Valproate Sodium 500 MG Q8 12/26 1721 DC Sodium Chloride 50 ML IV Valproate Sodium 250 MG TID 12/26 1717 CAN IV Laboratory Tests 12/26/17 171: Anion Gap 11, Estimated GFR > 60, BUN/Creatinine Ratio 6.7 L, Phosphorus 3.3, Magnesium 2.1 12/26/17 0941: CBC w Diff NO MAN DIFF REQ, RBC 4.15 L, MCV 98.5, MCH 33.3 H, MCHC 33.8, RDW 13.3, MPV 8.6, Gran % 61.7, Lymphocytes % 25.4, Monocytes % 10.3 H, Eosinophils % 1.0, Basophils % 1.6, Absolute Granulocytes 1.6, Absolute Lymphocytes 0.7 L, Absolute Monocytes 0.3, Absolute Eosinophils 0, Absolute Basophils 0 12/26/17 0930: Anion Gap 10, Estimated GFR > 60, BUN/Creatinine Ratio 5.7 L, Valproic Acid 61.6 12/25/17 175: Urine Color Cancelled, Urine Clarity Cancelled, Urine pH Cancelled, Ur Specific [place] Cancelled, Urine Protein Cancelled, Urine Ketones Cancelled, Urine Nitrite Cancelled, Urine Bilirubin Cancelled, Urine Urobilinogen Cancelled, Ur Leukocyte Esterase Cancelled, Ur Microscopic Cancelled, Urine Hemoglobin Cancelled, Urine Glucose Cancelled 12/25/17 1638: Lactic Acid Cancelled 12/25/17 1620: Anion Gap 13, Estimated GFR > 60, BUN/Creatinine Ratio 10.0, Glucose 84, Lactic Acid 1.6, Calcium 8.4, Total Bilirubin 0.6, AST 20, ALT 24, Alkaline Phosphatase 62, Troponin I < 0.01, Total Protein 5.7 L, Albumin 2.7 L, Globulin 3.0, Albumin/Globulin Ratio 0.9 L 12/25/17 1410: CBC w Diff NO MAN DIFF REQ, RBC 4.65, MCV 99.7 H, MCH 33.2 H, MCHC 33.3, RDW 14.1, MPV 8.5, Gran % 66.6, Lymphocytes % 22.8, Monocytes % 9.5 H, Eosinophils % 0.4, Basophils % 0.7, Absolute Granulocytes 4.0, Absolute Lymphocytes 1.4, Absolute Monocytes 0.6, Absolute Eosinophils 0, Absolute Basophils 0 12/25/17 1339: Troponin I Cancelled Microbiology 12/25 1758 URINE ROUT: Legionella Antigen - CAN Cancelled: SPECIMEN NOT RECEIVED IN LABORATORY 12/25 1758 URINE ROUT: Streptococcus pneumoniae Antigen (M - CAN Cancelled: SPECIMEN NOT RECEIVED IN LABORATORY 12/25 174 LOWER RESP: Respiratory Culture - CAN Cancelled: SPECIMEN NOT RECEIVED IN LABORATORY 12/25 1749 LOWER RESP: Gram Stain - CAN Cancelled: SPECIMEN NOT RECEIVED IN LABORATORY 12/25 1510 BLOOD: Blood Culture - RES 12/25 1410 BLOOD: Blood Culture - CAN Cancelled: Quantity not sufficient for both blood culture bottles. 12/25 1338 LOWER RESP: Respiratory Culture - CAN Cancelled: SPECIMEN NOT RECEIVED IN LABORATORY 12/25 1338 LOWER RESP: Gram Stain - CAN Cancelled: SPECIMEN NOT RECEIVED IN LABORATORY 12/25 1145 NASOPHARYN: Influenza Virus A & B Rapid Smear - COMP Microbiology 12/25 175 URINE ROUT: Legionella Antigen - CAN Cancelled: SPECIMEN NOT RECEIVED IN LABORATORY 12/25 175 URINE ROUT: Streptococcus pneumoniae Antigen (M - CAN Cancelled: SPECIMEN NOT RECEIVED IN LABORATORY 12/25 1749 LOWER RESP: Respiratory Culture - CAN Cancelled: SPECIMEN NOT RECEIVED IN LABORATORY 12/25 1749 LOWER RESP: Gram Stain - CAN Cancelled: SPECIMEN NOT RECEIVED IN LABORATORY 12/25 1510 BLOOD: Blood Culture - RES 12/25 1410 BLOOD: Blood Culture - CAN Cancelled: Quantity not sufficient for both blood culture bottles. 12/25 1338 LOWER RESP: Respiratory Culture - CAN Cancelled: SPECIMEN NOT RECEIVED IN LABORATORY 12/25 1338 LOWER RESP: Gram Stain - CAN Cancelled: SPECIMEN NOT RECEIVED IN LABORATORY 12/25 1145 NASOPHARYN: Influenza Virus A & B Rapid Smear - COMP Vital Signs Date Time Temp Pulse Resp B/P B/P Pulse O2 O2 Flow FiO2 Mean Ox Delivery Rate 12/27 0719 97.4 64 16 121/68 99 Room Air 12/27 0000 Room Air 12/26 2306 98.1 80 18 141/105 95 Room Air 12/26 1437 97.9 65 19 118/70 92 Room Air 12/26 1324 Room Air Room Air
--- NOTE | 2017-12-27 10:14 | Cons- Neurology ---
General Information and HPI Consulting Request Date of Consult: 12/27/17 Requested By: Vinicio Nicholas MD Reason for Consult: Seizure disorder, Down's syndrome Source of Information: old records, Resident MD Exam Limitations: unable to give history, physical impairment History of Present Illness: 62 year old nursing home resident with Down's syndrome and a known seizure disorder presented December 23 with pneumonitis and admitted 2 days later with aspiration pneumonia. Consultation was placed via phone contact yesterday late afternoon with the report of a seizure. Her baseline Depakote dose is relatively low at 250 MG twice daily and an empiric increase to 200 MG 3 times daily was recommended. Today however the resident on duty states that the patient was simply having more frequent myoclonic jerks and does not report any history of actual seizures in the recent past. The patient herself can give no information. Allergies/Medications Allergies: Coded Allergies: dexamethasone (From TOBRADEX) (UNKNOWN 12/25/17) tobramycin (From TOBRADEX) (UNKNOWN 12/25/17) Home Med List: Amoxicillin/Potassium Clav (Augmentin 875-125 Tablet) 875 MG-125 MG TABLET 1 TAB PO BID early pneumonia Amoxicillin/Potassium Clav (Augmentin 250-62.5 MG/5 Ml) 250 MG-62.5 MG/5 ML SUSP.RECON 15 ML PO BID pneumonia x 10 days Bacitracin 500 U/GM OIN 1 MARTITA TOP QPM EYES (Reported) apply to affected area(s) Calcium Carbonate (Calcium 600) 600 MG TAB 600 MG PO BID SUPPLEMENT (Reported ) CELLULOSE (Unifiber) (Unknown Strength) POWDER (Unknown Dose) PO QPM SUPPLEMENT (Reported) CHOLECALCIFEROL (VITAMIN D3) (Vitamin D3) 400 UNIT TABLET 400 IU PO BID SUPPLEMENT (Reported) Cilostazol 50 MG TABLET 1 TAB PO BID BLOOD FLOW (Reported) Cranberry (Cranberry Fruit) (Unknown Strength) CAP (Unknown Dose) PO DAILY SUPPLEMENT (Reported) Divalproex Sodium 125 MG ECC 2 CAP PO BID SEIZURES (Reported) Lactose-Reduced Food (Ensure Liquid) 237 ML LIQUID 1 BOT PO DAILY supplement (Reported) Magnesium Hydroxide (Dulcolax Milk Of Magnesia) (Unknown Strength) AMY ( Unknown Dose) PO DAILY GI (Reported) Memantine HCl (Namenda XR) 14 MG CAP.SPR.24 1 CAP PO DAILY MENTAL HEALTH ( Reported) Mometasone Furoate (Nasonex) 50 MCG SPRAY.PUMP 2 SPRAY NASB BID PRN nasal congestion (Reported) Mupirocin 2 % OINT...G. 1 MARTITA TOP TID PRN open wound (Reported) apply to affected area(s) Polyethylene Glycol 3350 (Miralax) 17 GRAM/DOSE POWDER 17 GM PO EOD GI ( Reported) mix with water, juice, soda, coffee or tea RANITIDINE HCL (Ranitidine HCl) 15 MG/ML SYR 15 ML PO QAM GI (Reported) Current Medications: Current Medications Sig/Maia Start time Last Medication Dose Route Stop Time Status Admin Acetaminophen 650 MG Q12 PRN 12/25 1800 AC IV Ampicillin Sodium/ 1,500 MG Q6H 12/26 1915 AC 12/27 Sulbactam Sodium IV 0623 Sodium Chloride 50 ML Ampicillin Sodium/ 1,500 MG Q6 12/25 1800 DC 12/26 Sulbactam Sodium IV 1145 Sodium Chloride 100 ML Dextrose/Sodium 1,000 ML Q20H 12/26 1615 AC 12/26 Chloride IV 12/27 1214 1746 Dextrose/Sodium 1,000 ML Q20H 12/25 1800 DC 12/25 Chloride IV 12/26 1359 1955 Divalproex Sodium 250 MG BID 12/25 2200 DC 12/26 PO 0919 Enoxaparin Sodium 40 MG DAILY 12/25 1744 AC 12/27 SC 0856 Lorazepam 1 MG ONCE ONE 12/26 1700 DC 12/26 IV 12/26 1701 1655 Memantine 5 MG BID 12/26 1000 AC 12/26 PO 0919 Ondansetron HCl 4 MG Q6P PRN 12/25 1800 AC IV Pantoprazole Sodium 20 MG DAILY 12/26 1000 AC 12/27 IV 0856 Valproate Sodium 500 MG Q8H 12/26 2000 AC 12/27 Sodium Chloride 50 ML IV 0420 Valproate Sodium 500 MG Q8 12/26 1721 DC Sodium Chloride 50 ML IV Valproate Sodium 250 MG TID 12/26 1717 CAN IV Review of Systems Review of Systems: Unobtainable Past History Travel History Traveled to [place] past 21 day No Medical History Blood Transfusion Hx: No Neurological: dementia, seizure, DOWN SYNDROME EENT: NONE Cardiovascular: NONE Respiratory: NONE Gastrointestinal: NONE Hepatic: NONE Renal: NONE Musculoskeletal: NONE Psychiatric: NONE Endocrine: NONE Blood Disorders: NONE Cancer(s): breast cancer THEATER MANAGER/Reproductive: NONE Surgical History Surgical History: non-contributory Psychosocial History Where Do You Live? [facility] Smoking Status: Never Smoked ETOH Use: denies use Illicit Drug Use: denies illicit drug use Exam & Diagnostic Data Vital Signs and I&O Vital Signs Date Time Temp Pulse Resp B/P B/P Pulse O2 O2 Flow FiO2 Mean Ox Delivery Rate 12/27 0719 97.4 64 16 121/68 99 Room Air 12/27 0000 Room Air 12/26 2306 98.1 80 18 141/105 95 Room Air 12/26 1437 97.9 65 19 118/70 92 Room Air 12/26 1324 Room Air Room Air Intake & Output 12/27 1600 12/27 0800 12/27 0000 Intake Total 400 560 Output Total Balance 400 560 Intake, IV 400 560 Intake, Oral 0 0 Number 0 Bowel Movements Physical Exam: Appears comfortable, breathing regularly, small stature, cranium small, Down's facial features. Neck supple. Currently unresponsive to voice but withdraws to pinch both upper extremities. Pupils are midsize equal round and reactive. Eye movements are conjugate provoked on the doll's maneuver. Face symmetric. Macroglossia, cannot inspect pharynx. Motor tone is grossly normal, equal withdrawal movement bilaterally, tendon reflexes symmetric, plantar responses silent. Remaining elements of the complete neuro exam cannot be obtained Last 48 Hours of Lab Results: Laboratory Tests 12/26 12/26 12/26 1717 0941 0930 Chemistry Sodium (137 - 145 mmol/L) 147 H 146 H Potassium (3.5 - 5.1 mmol/L) 3.8 4.1 Chloride (98 - 107 mmol/L) 108 H 108 H Carbon Dioxide (22 - 30 mmol/L) 28 28 Anion Gap (5 - 16) 11 10 BUN (7 - 17 mg/dL) 4 L 4 L Creatinine (0.5 - 1.0 mg/dL) 0.6 0.7 Estimated GFR (>60 ml/min) > 60 > 60 BUN/Creatinine Ratio (7 - 25 %) 6.7 L 5.7 L Phosphorus (2.5 - 4.5 mg/dL) 3.3 Magnesium (1.6 - 2.3 mg/dL) 2.1 Hematology CBC w Diff NO MAN DIFF REQ WBC (4.8 - 10.8 /CUMM) 2.6 L RBC (4.20 - 5.40 /CUMM) 4.15 L Hgb (12.0 - 16.0 G/DL) 13.8 Hct (37 - 47 %) 40.9 MCV (81.0 - 99.0 FL) 98.5 MCH (27.0 - 31.0 PG) 33.3 H MCHC (33.0 - 37.0 G/DL) 33.8 RDW (11.5 - 14.5 %) 13.3 Plt Count (130 - 400 /CUMM) 175 MPV (7.4 - 10.4 FL) 8.6 Gran % (42.2 - 75.2 %) 61.7 Lymphocytes % (20.5 - 51.1 %) 25.4 Monocytes % (1.7 - 9.3 %) 10.3 H Eosinophils % (0 - 5 %) 1.0 Basophils % (0.0 - 2.0 %) 1.6 Absolute Granulocytes (1.4 - 6.5 /CUMM) 1.6 Absolute Lymphocytes (1.2 - 3.4 /CUMM) 0.7 L Absolute Monocytes (0.10 - 0.60 /CUMM) 0.3 Absolute Eosinophils (0.0 - 0.7 /CUMM) 0 Absolute Basophils (0.0 - 0.2 /CUMM) 0 Toxicology Valproic Acid (50 - 120 ug/mL) 61.6 12/25 12/25 12/25 1759 1638 1620 Chemistry Sodium (137 - 145 mmol/L) 147 H Potassium (3.5 - 5.1 mmol/L) 4.2 Chloride (98 - 107 mmol/L) 107 Carbon Dioxide (22 - 30 mmol/L) 27 Anion Gap (5 - 16) 13 BUN (7 - 17 mg/dL) 7 Creatinine (0.5 - 1.0 mg/dL) 0.7 Estimated GFR (>60 ml/min) > 60 BUN/Creatinine Ratio (7 - 25 %) 10.0 Glucose (65 - 99 mg/dL) 84 Lactic Acid (0.7 - 2.1 mmol/L) Cancelled 1.6 Calcium (8.4 - 10.2 mg/dL) 8.4 Total Bilirubin (0.2 - 1.3 mg/dL) 0.6 AST (14 - 36 U/L) 20 ALT (9 - 52 U/L) 24 Alkaline Phosphatase (<127 U/L) 62 Troponin I (< 0.11 ng/ml) < 0.01 Total Protein (6.3 - 8.2 g/dL) 5.7 L Albumin (3.5 - 5.0 g/dL) 2.7 L Globulin (1.9 - 4.2 gm/dL) 3.0 Albumin/Globulin Ratio (1.1 - 2.2 %) 0.9 L Urines Urine Color Cancelled Urine Clarity Cancelled Urine pH Cancelled Ur Specific [place] Cancelled Urine Protein Cancelled Urine Ketones Cancelled Urine Nitrite Cancelled Urine Bilirubin Cancelled Urine Urobilinogen Cancelled Ur Leukocyte Esterase Cancelled Ur Microscopic Cancelled Urine Hemoglobin Cancelled Urine Glucose Cancelled 12/25 12/25 1410 1339 Chemistry Troponin I Cancelled Hematology CBC w Diff NO MAN DIFF REQ WBC (4.8 - 10.8 /CUMM) 6.0 RBC (4.20 - 5.40 /CUMM) 4.65 Hgb (12.0 - 16.0 G/DL) 15.4 Hct (37 - 47 %) 46.3 MCV (81.0 - 99.0 FL) 99.7 H MCH (27.0 - 31.0 PG) 33.2 H MCHC (33.0 - 37.0 G/DL) 33.3 RDW (11.5 - 14.5 %) 14.1 Plt Count (130 - 400 /CUMM) 204 MPV (7.4 - 10.4 FL) 8.5 Gran % (42.2 - 75.2 %) 66.6 Lymphocytes % (20.5 - 51.1 %) 22.8 Monocytes % (1.7 - 9.3 %) 9.5 H Eosinophils % (0 - 5 %) 0.4 Basophils % (0.0 - 2.0 %) 0.7 Absolute Granulocytes (1.4 - 6.5 /CUMM) 4.0 Absolute Lymphocytes (1.2 - 3.4 /CUMM) 1.4 Absolute Monocytes (0.10 - 0.60 /CUMM) 0.6 Absolute Eosinophils (0.0 - 0.7 /CUMM) 0 Absolute Basophils (0.0 - 0.2 /CUMM) 0 Imaging/Other Studies: Chest x-ray: Bronchial friedman appear mildly thickened, suggestive of airway inflammation. However, there is no convincing pneumonia Assessment/Plan Assessment: Myoclonic jerks in a patient with Down's syndrome and a known seizure disorder but no recognized actual seizures. Depakote level good on the 250 MG twice daily dose: 61.6 Level of consciousness reduced, consistent with toxic encephalopathy superimposed on her dementia. Recommendations: Would resume the prior valproate dose: 250 MG twice daily. This could be given IV, Depakene elixir is present for by mouth use and sprinkle tablets are available if needed. Would defer any additional neurodiagnostic testing at this time. If seizures recur would then raise valproate to 250 MG 3 times daily. Consult Acknowledgment - Thank you for your consult request.
[2017-12-27 14:09] VITALS: BP 122/80
[2017-12-27 23:35] VITALS: BP 103/60
[2017-12-28 06:31] VITALS: BP 128/76
--- NOTE | 2017-12-28 07:37 | PN- Housestaff ---
Subjective Follow-up For: Aspiration pneumonia Seizure disorder S Subjective: Patient is seen and examined this morning. She was lying comfortably on bed. She is nonverbal at baseline. As per information from the [facility], patient is baseline a little lethargic, she has been getting pure and thin soft diet at the [facility]. She is still nothing by mouth for formal swallow evaluation today, will keep her on D5 half-normal saline for now pending above. She was seen by Dr. Lakhani from neurology and recommendations are to keep her on same dose of Depakote as she was on previously at 250 twice a day. Once she would be more alert and able to swallow we will change medications to oral. Review of Systems Constitutional: Denies: see HPI. EENTM: Denies: see HPI, blurred vision, double vision. Cardiovascular: Denies: see HPI, chest pain, edema, orthopena. Respiratory: Denies: see HPI. Objective Last 24 Hrs of Vital Signs/I&O Vital Signs Date Time Temp Pulse Resp B/P B/P Pulse O2 O2 Flow FiO2 Mean Ox Delivery Rate 12/28 1403 98.3 62 18 100/58 92 12/28 0631 98.0 64 20 128/76 98 12/28 0000 Room Air 12/27 2335 98.5 81 16 103/60 94 Room Air Intake & Output 12/28 1600 12/28 0800 12/28 0000 Intake Total 400 Output Total Balance 400 Intake, IV 400 Intake, Oral Number 1 Bowel Movements Physical Exam General Appearance: Alert, Oriented X3 Skin: No Rashes, No Breakdown Skin Temp/Moisture Exam: Cool/Dry Sepsis Skin Exam (color): Normal for Ethnicity, Cyanotic HEENT: Atraumatic, PERRLA, EOMI Neck: Supple, No JVD Cardiovascular: Regular Rate, Normal S1, Normal S2 Lungs: Clear to Auscultation, Normal Air Movement Abdomen: Normal Bowel Sounds, Soft Neurological: Normal Gait, Normal Speech Current Medications: Current Medications Sig/Maia Start time Last Medication Dose Route Stop Time Status Admin Acetaminophen 650 MG Q12 PRN 12/25 1800 AC IV Ampicillin Sodium/ 1,500 MG Q6H 12/26 1915 AC 12/28 Sulbactam Sodium IV 1356 Sodium Chloride 50 ML Dextrose/Water 1,000 ML ONCE ONE 12/27 1530 DC 12/27 IV 12/28 1129 1621 Enoxaparin Sodium 40 MG DAILY 12/25 1744 AC 12/28 SC 1034 Memantine 5 MG BID 12/26 1000 AC 12/27 PO 2108 Ondansetron HCl 4 MG Q6P PRN 12/25 1800 AC IV Pantoprazole Sodium 20 MG DAILY 12/26 1000 AC 12/28 IV 1035 Valproate Sodium 250 MG BID 12/27 2200 DC Sodium Chloride 50 ML IV Valproate Sodium 250 MG BID 12/27 2200 AC 12/28 Sodium Chloride 50 ML IV 1034 Last 24 Hrs of Lab/Amos Results Last 24 Hrs of Labs/Mics: Laboratory Tests 12/28/17 0650: Anion Gap 9, Estimated GFR > 60, BUN/Creatinine Ratio 5.0 L, CBC w Diff NO MAN DIFF REQ, RBC 4.26, MCV 99.0, MCH 33.3 H, MCHC 33.6, RDW 13.4, MPV 8.6, Gran % 52.5, Lymphocytes % 38.2, Monocytes % 8.0, Eosinophils % 0.5, Basophils % 0.8, Absolute Granulocytes 2.1, Absolute Lymphocytes 1.5, Absolute Monocytes 0.3, Absolute Eosinophils 0, Absolute Basophils 0 Assessment/Plan Assessment: Patient is 62-year-old female from [facility] with past medical history significant for Down syndrome, seizure, right breast carcinoma status post mastectomy recent ER visit at [place] [facility] on December 23 FOR suspicion of aspiration pneumonia came back to [facility] ER with chief complaint of worsening cough, weakness and fever concerning of aspiration pneumonia. We will admit her on general medical floor and will address following problems Problem #1 worsening cough, weakness and fever most likely due to aspiration pneumonia * We will keep her nothing by mouth except will give her medications crushed with applesauce * As per information from the [facility], patient is baseline a little lethargic , she has been getting pure and thin soft diet at the [facility]. * She is still nothing by mouth for formal swallow evaluation today, will keep her on D5 half-normal saline for now pending above. * Aspiration precautions * TRC and nebulization * Start her on Unasyn for now and will send lower respiratory culture * While she is nothing by mouth we will continue her on D5 half-normal saline * We will keep her oxygen saturation more than 90% and will give supplemental oxygen if needed Problem #2 history of seizures * She was continued on her home dose of Depakote. Neurology consultation was placed and appreciated. According to the recommendations we will maintain her on home dose of Depakote. Her Depakote levels are within therapeutic range. Problem #3 Down syndrome/wheelchair-bound * All supportive care and [address] Sawant's catheter if needed Problem List: 1. Lethargy 2. Bronchitis Pain Ratin Pain Location: no pain at this time Pain Goal: Pain 4 or less Pain Plan: no labs for tomorrow Tomorrow's Labs & Rationales: CBC AND BEP
[2017-12-28 08:09] LABS: ABSOLUTE BASOPHIL COUNT 0 /CUMM (0.0-0.2); ABSOLUTE EOSINOPHIL COUNT 0 /CUMM (0.0-0.7); ABSOLUTE GRANULOCYTE CT 2.1 /CUMM (1.4-6.5); ABSOLUTE LYMPH COUNT 1.5 /CUMM (1.2-3.4); ABSOLUTE MONOCYTE COUNT 0.3 /CUMM (0.10-0.60); BASOPHIL % 0.8 % (0.0-2.0); EOSINOPHIL % 0.5 % (0-5); GRANULOCYTE % 52.5 % (42.2-75.2); HEMATOCRIT 42.2 % (37-47); MEAN CORPUSCULAR HGB 33.3 PG (27.0-31.0); MEAN CORPUSCULAR HGB CONC 33.6 G/DL (33.0-37.0); MEAN PLATELET VOLUME 8.6 FL (7.4-10.4); PLATELET COUNT 183 /CUMM (130-400); RBC DISTRIBUTION WIDTH 13.4 % (11.5-14.5); RED BLOOD CELL CT 4.26 /CUMM (4.20-5.40); WHITE BLOOD CELL COUNT 3.9 /CUMM (4.8-10.8)
--- NOTE | 2017-12-28 10:03 | PN- Att Addend ---
Attending Addendum Attending Brief Note No major issues today, vital signs are stable no fever. No new changes on physical. White count is not elevated. Would have the repeat swallowing evaluation today, if she passes and will start disposition plans for her to return to the [facility]. Intake & Output 12/28 1600 12/28 0400 12/27 1600 12/27 0400 12/26 1600 12/26 0400 Intake Total 400 1100 560 970 100 Output Total Balance 400 1100 560 970 100 Intake, IV 400 500 560 970 100 Intake, Oral 600 0 0 Number 1 2 0 1 Bowel Movements Output, Urine Patient 101 lb Weight Weight Bed scale Measurement Method Current Medications Sig/Maia Start time Last Medication Dose Route Stop Time Status Admin Acetaminophen 650 MG Q12 PRN 12/25 1800 AC IV Ampicillin Sodium/ 1,500 MG Q6H 12/26 1915 AC 12/28 Sulbactam Sodium IV 0637 Sodium Chloride 50 ML Dextrose/Sodium 1,000 ML Q20H 12/26 1615 DC 12/26 Chloride IV 12/27 1214 1746 Dextrose/Water 1,000 ML ONCE ONE 12/27 1530 AC 12/27 IV 12/28 1129 1621 Enoxaparin Sodium 40 MG DAILY 12/25 1744 AC 12/27 SC 0856 Memantine 5 MG BID 12/26 1000 AC 12/27 PO 2108 Ondansetron HCl 4 MG Q6P PRN 12/25 1800 AC IV Pantoprazole Sodium 20 MG DAILY 12/26 1000 AC 12/27 IV 0856 Valproate Sodium 250 MG BID 12/27 2200 CAN IV Valproate Sodium 250 MG BID 12/27 220 DC Sodium Chloride 50 ML IV Valproate Sodium 250 MG BID 12/27 2200 AC 12/27 Sodium Chloride 50 ML IV 2214 Valproate Sodium 500 MG Q8H 12/26 2000 DC 12/27 Sodium Chloride 50 ML IV 0420 Laboratory Tests 12/28/17 0650: Anion Gap 9, Estimated GFR > 60, BUN/Creatinine Ratio 5.0 L, CBC w Diff NO MAN DIFF REQ, RBC 4.26, MCV 99.0, MCH 33.3 H, MCHC 33.6, RDW 13.4, MPV 8.6, Gran % 52.5, Lymphocytes % 38.2, Monocytes % 8.0, Eosinophils % 0.5, Basophils % 0.8, Absolute Granulocytes 2.1, Absolute Lymphocytes 1.5, Absolute Monocytes 0.3, Absolute Eosinophils 0, Absolute Basophils 0 12/26/17 1717: Anion Gap 11, Estimated GFR > 60, BUN/Creatinine Ratio 6.7 L, Phosphorus 3.3, Magnesium 2.1 12/26/17 0941: CBC w Diff NO MAN DIFF REQ, RBC 4.15 L, MCV 98.5, MCH 33.3 H, MCHC 33.8, RDW 13.3, MPV 8.6, Gran % 61.7, Lymphocytes % 25.4, Monocytes % 10.3 H, Eosinophils % 1.0, Basophils % 1.6, Absolute Granulocytes 1.6, Absolute Lymphocytes 0.7 L, Absolute Monocytes 0.3, Absolute Eosinophils 0, Absolute Basophils 0 12/26/17 0930: Anion Gap 10, Estimated GFR > 60, BUN/Creatinine Ratio 5.7 L, Valproic Acid 61.6 12/25/17 175: Urine Color Cancelled, Urine Clarity Cancelled, Urine pH Cancelled, Ur Specific [place] Cancelled, Urine Protein Cancelled, Urine Ketones Cancelled, Urine Nitrite Cancelled, Urine Bilirubin Cancelled, Urine Urobilinogen Cancelled, Ur Leukocyte Esterase Cancelled, Ur Microscopic Cancelled, Urine Hemoglobin Cancelled, Urine Glucose Cancelled 12/25/17 1638: Lactic Acid Cancelled 12/25/17 1620: Anion Gap 13, Estimated GFR > 60, BUN/Creatinine Ratio 10.0, Glucose 84, Lactic Acid 1.6, Calcium 8.4, Total Bilirubin 0.6, AST 20, ALT 24, Alkaline Phosphatase 62, Troponin I < 0.01, Total Protein 5.7 L, Albumin 2.7 L, Globulin 3.0, Albumin/Globulin Ratio 0.9 L 12/25/17 1410: CBC w Diff NO MAN DIFF REQ, RBC 4.65, MCV 99.7 H, MCH 33.2 H, MCHC 33.3, RDW 14.1, MPV 8.5, Gran % 66.6, Lymphocytes % 22.8, Monocytes % 9.5 H, Eosinophils % 0.4, Basophils % 0.7, Absolute Granulocytes 4.0, Absolute Lymphocytes 1.4, Absolute Monocytes 0.6, Absolute Eosinophils 0, Absolute Basophils 0 12/25/17 1339: Troponin I Cancelled Microbiology 01/28 1759 URINE ROUT: Legionella Antigen - CAN Cancelled: SPECIMEN NOT RECEIVED IN LABORATORY 12/25 175 URINE ROUT: Streptococcus pneumoniae Antigen (M - CAN Cancelled: SPECIMEN NOT RECEIVED IN LABORATORY 12/25 1749 LOWER RESP: Respiratory Culture - CAN Cancelled: SPECIMEN NOT RECEIVED IN LABORATORY 12/25 1749 LOWER RESP: Gram Stain - CAN Cancelled: SPECIMEN NOT RECEIVED IN LABORATORY 12/25 1510 BLOOD: Blood Culture - RES 12/25 1410 BLOOD: Blood Culture - CAN Cancelled: Quantity not sufficient for both blood culture bottles. 12/25 1338 LOWER RESP: Respiratory Culture - CAN Cancelled: SPECIMEN NOT RECEIVED IN LABORATORY 12/25 133 LOWER RESP: Gram Stain - CAN Cancelled: SPECIMEN NOT RECEIVED IN LABORATORY 12/25 1145 NASOPHARYN: Influenza Virus A & B Rapid Smear - COMP Microbiology 12/25 175 URINE ROUT: Legionella Antigen - CAN Cancelled: SPECIMEN NOT RECEIVED IN LABORATORY 12/25 175 URINE ROUT: Streptococcus pneumoniae Antigen (M - CAN Cancelled: SPECIMEN NOT RECEIVED IN LABORATORY 12/25 1749 LOWER RESP: Respiratory Culture - CAN Cancelled: SPECIMEN NOT RECEIVED IN LABORATORY 12/25 1749 LOWER RESP: Gram Stain - CAN Cancelled: SPECIMEN NOT RECEIVED IN LABORATORY 12/25 1510 BLOOD: Blood Culture - RES 12/25 1410 BLOOD: Blood Culture - CAN Cancelled: Quantity not sufficient for both blood culture bottles. 12/25 1338 LOWER RESP: Respiratory Culture - CAN Cancelled: SPECIMEN NOT RECEIVED IN LABORATORY 12/25 133 LOWER RESP: Gram Stain - CAN Cancelled: SPECIMEN NOT RECEIVED IN LABORATORY 12/25 1145 NASOPHARYN: Influenza Virus A & B Rapid Smear - COMP Vital Signs Date Time Temp Pulse Resp B/P B/P Pulse O2 O2 Flow FiO2 Mean Ox Delivery Rate 12/28 0631 98.0 64 20 128/76 98 12/28 0000 Room Air 12/27 2335 98.5 81 16 103/60 94 Room Air 12/27 1409 98.3 97 20 122/80 92
[2017-12-28 14:03] VITALS: BP 100/58
[2017-12-28 23:39] VITALS: BP 100/62
[2017-12-29 05:21] VITALS: BP 100/58
--- NOTE | 2017-12-29 07:40 | PN- Housestaff ---
Subjective Follow-up For: Aspiration pneumonia Seizure disorder Subjective: Patient is seen and examined this morning. She was lying comfortably on bed. She is nonverbal at baseline. Patient passed swallow evolution yesterday started on pure and nectar thick diet. She remained afebrile overnight, unable to report any complaints She was seen by Dr. Lakhani from neurology and recommendations are to keep her on same dose of Depakote as she was on previously at 250 twice a day. Review of Systems Constitutional: Denies: see HPI. Objective Last 24 Hrs of Vital Signs/I&O Vital Signs Date Time Temp Pulse Resp B/P B/P Pulse O2 O2 Flow FiO2 Mean Ox Delivery Rate 12/29 0521 97.5 51 20 100/58 98 Room Air 12/28 2339 97.7 72 16 100/62 97 Room Air Intake & Output 12/29 1600 12/29 0800 12/29 0000 Intake Total 290 240 680 Output Total Balance 290 240 680 Intake, IV 50 200 Intake, Oral 240 240 480 Patient 102 lb Weight Physical Exam General Appearance: Alert Skin Temp/Moisture Exam: Cool/Dry Lungs: Clear to Auscultation, Normal Air Movement Abdomen: Normal Bowel Sounds, Soft Neurological: Normal Gait, Normal Speech Assessment/Plan Assessment: Patient is 62-year-old [place] [facility] with past medical history significant for Down syndrome, seizure, right breast carcinoma status post mastectomy recent ER visit at [place] on December 23 FOR suspicion of aspiration pneumonia came back to [facility] ER with chief complaint of worsening cough, weakness and fever concerning of aspiration pneumonia. We will admit her on general medical floor and will address following problems Problem #1 worsening cough, weakness and fever most likely due to aspiration pneumonia * We will keep her nothing by mouth except will give her medications crushed with applesauce * As per information from the detention, patient is baseline a little lethargic , she has been getting pure and thin soft diet at the [facility]. * She is still nothing by mouth for formal swallow evaluation today, will keep her on D5 half-normal saline for now pending above. * Aspiration precautions * TRC and nebulization * Start her on Unasyn for now and will send lower respiratory culture * While she is nothing by mouth we will continue her on D5 half-normal saline * We will keep her oxygen saturation more than 90% and will give supplemental oxygen if needed Problem #2 history of seizures * She was continued on her home dose of Depakote. Neurology consultation was placed and appreciated. According to the recommendations we will maintain her on home dose of Depakote. Her Depakote levels are within therapeutic range. Problem #3 Down syndrome/wheelchair-bound * All supportive care and [address] Sawant's catheter if needed Problem List: 1. Aspiration pneumonia Pain Ratin Pain Location: no pain at this time Pain Goal: Remain pain free Pain Plan: prn tylenol Tomorrow's Labs & Rationales: no labs needed
--- NOTE | 2017-12-29 11:20 | PN- Att Addend ---
Attending Addendum Attending Brief Note Back to baseline, comfortable in bed, vital signs are stable, no fever and no changes on physical if at the swallowing reevaluation in the proper diet was started, will lead returned to the longterm at home care , physical therapy, and call in her antibiotic and special powders for the feeding to the pharmacy and I will follow her in the office next week. See the discharge summary and C MR and W 10. Intake & Output 12/29 1600 12/29 0400 12/28 1600 12/28 0400 12/27 1600 12/27 0400 Intake Total 240 415 713 5817 560 Output Total Balance 240 307 725 4910 560 Intake, IV 200 450 500 560 Intake, Oral 240 480 0 600 0 Number 1 2 0 Bowel Movements Patient 102 lb 101 lb Weight Current Medications Sig/Maia Start time Last Medication Dose Route Stop Time Status Admin Acetaminophen 650 MG Q12 PRN 12/25 1800 AC IV Ampicillin Sodium/ 1,500 MG Q6H 12/26 1915 AC 12/29 Sulbactam Sodium IV 0648 Sodium Chloride 50 ML Dextrose/Water 1,000 ML ONCE ONE 12/27 1530 DC 12/27 IV 12/28 1129 1621 Enoxaparin Sodium 40 MG DAILY 12/25 1744 AC 12/29 SC 0902 Memantine 5 MG BID 12/26 1000 AC 12/29 PO 0902 Ondansetron HCl 4 MG Q6P PRN 12/25 1800 AC IV Pantoprazole Sodium 20 MG DAILY 12/26 1000 AC 12/29 IV 0902 Valproate Sodium 250 MG BID 12/27 2200 AC 12/29 Sodium Chloride 50 ML IV 1014 Laboratory Tests 12/28/17 0650: Anion Gap 9, Estimated GFR > 60, BUN/Creatinine Ratio 5.0 L, CBC w Diff NO MAN DIFF REQ, RBC 4.26, MCV 99.0, MCH 33.3 H, MCHC 33.6, RDW 13.4, MPV 8.6, Gran % 52.5, Lymphocytes % 38.2, Monocytes % 8.0, Eosinophils % 0.5, Basophils % 0.8, Absolute Granulocytes 2.1, Absolute Lymphocytes 1.5, Absolute Monocytes 0.3, Absolute Eosinophils 0, Absolute Basophils 0 12/26/17 1717: Anion Gap 11, Estimated GFR > 60, BUN/Creatinine Ratio 6.7 L, Phosphorus 3.3, Magnesium 2.1 Vital Signs Date Time Temp Pulse Resp B/P B/P Pulse O2 O2 Flow FiO2 Mean Ox Delivery Rate 12/29 0521 97.5 51 20 100/58 98 Room Air 12/28 2339 97.7 72 16 100/62 97 Room Air 12/28 1403 98.3 62 18 100/58 92
[2017-12-29] MEDS ORDERED: AUGMENTIN 875-1 EACH PO ×2 (11:22→11:28)
--- NOTE | 2017-12-29 11:23 | Patient Discharge Instructions ---
Discharge Instructions General Discharge Information You were seen/treated for: Aspirational Pneumonia Special Instructions: - Please follow up with your primary care physician within 1-2 week of discharge. Inform your primary care physician of this admission to [facility]. - Continue your current medications per discharge instructions. - Please watch for these problems: Fever, Chills, Nausea, Vomiting, Shortness of Breath, Productive Cough, Chest Pain/Discomfort, Abdominal Pain, Active Bleeding or Bloody urine/stool. Diet Continue normal diet: Yes Activity Full Activity/No Limits: Yes Acute Coronary Syndrome Inclusion Criteria At DC or during hospital stay patient has or had the following: ACS DIAGNOSIS No Discharge Core Measures Meds if any: Prescribed or Continued at Discharge Meds if any: NOT Prescribed or Continued at Discharge Congestive Heart Failure Inclusion Criteria At DC or during hospital stay patient has or had the following: CHF DIAGNOSIS No Discharge Core Measures Meds if any: Prescribed or Continued at Discharge Meds if any: NOT Prescribed or Continued at Discharge Cerebrovascular accident Inclusion Criteria At DC or during hospital stay patient has or had the following: CVA/TIA Diagnosis No Discharge Core Measures Meds if any: Prescribed or Continued at Discharge Meds if any: NOT Prescribed or Continued at Discharge Venous thromboembolism Inclusion Criteria VTE Diagnosis No VTE Type NONE VTE Confirmed by (Test) NONE Discharge Core Measures - Per Current guidelines, there needs to be overlap - treatment for the first 5 days of Warfarin therapy. - If discharged on Warfarin prior to 5 days of - overlap therapy, the patient will need to be - assessed for post discharge needs including - *Post discharge parental anticoagulation - *Warfarin and/or parental anticoagulation education - *Follow up date to check INR post discharge At least 5 days overlap therapy as Inpatient No Meds if any: Prescribed or Continued at Discharge Note: Overlap Therapy is Warfarin and Anticoagulant Meds if any: NOT Prescribed or Continued at Discharge
[2017-12-29] MEDS ORDERED: MIRALAX17 G1 PO (12:04)
[2017-12-29] MEDS ORDERED: AUGMENTIN250 MG/51 PO (12:04)
[2017-12-29] MEDS ORDERED: MILK OF MA400 MG/52 PO (12:04)
[2017-12-29] MEDS ORDERED: VITAMIN D3400 UNIT PO (12:06)
== END 2017-12-29 13:13 | disposition home health service (06) | DRG 177 ==
LOC: ERH 11:23 → 2NB 17:48 → ERHI 17:48 → ENRESERV 18:08 → EDBEDREQ 18:23 → ENTRNSPT 19:33 → 2NB 19:43 → CMPTRNSPT 19:53 → ENPENDDIS 12-29 11:46 → 2NB 12-29 13:13
PROVIDERS: Internal Medicine; Physician Assistant
DX: J69.0 Pneumonitis due to inhalation of food and vomit (principal); G92 Toxic encephalopathy; Q90.9 Down syndrome, unspecified; R13.10 Dysphagia, unspecified; Z99.3 Dependence on wheelchair; G40.909 Epilepsy, unspecified, not intractable, without status epilepticus; F03.90 Unspecified dementia, unspecified severity, without behavioral disturbance, psychotic disturbance, mood disturbance, and anxiety; Z85.3 Personal history of malignant neoplasm of breast
CPT/HCPCS: 2NBSP; 36415; 70360; 71046; 74177; 82436; 87040; 87070; 87449; 87450; 87804; 87804-59; 93005; 93010; 94799; 96374; J0131; J1650; J2405; J3490; J7042; J7060